=== PATIENT | female | born 1950 | race Caucasian/White ===

== ENCOUNTER 2016-06-25 20:46 | Inpatient (IN) | payer MEDICARE, OTHER ==
[~2016-06-25] VITALS: Ht 157.5 cm; Wt 85.8 kg
[2016-06-25 21:15] VITALS: BP 160/73; PULSE 69; RESP 16; TEMP 98.1; O2SAT 97
--- NOTE | 2016-06-25 22:09 | RADRPT ---
EXAM DATE/TIME: 06/25/2016 21:29 [facility] COMPARISON: No previous studies available for comparison. INDICATIONS : Right elbow pain; fall today. MEDICAL HISTORY : None. SURGICAL HISTORY : None. ENCOUNTER: Initial ACUITY: 1 day PAIN SCORE: 10/10 LOCATION: Right elbow FINDINGS: Olecranon fracture is evident. Radial head fracture is evident. Humerus is intact. CONCLUSION: 1. Fracture of the radial head. 2. Fracture of the olecranon. Jj Santos MD FACR on June 25, 2016 at 22:04 Board Certified Radiologist. This report was verified electronically.
--- NOTE | 2016-06-25 22:11 | RADRPT ---
EXAM DATE/TIME: 06/25/2016 21:30 [facility] COMPARISON: No previous studies available for comparison. INDICATIONS : Right hand pain; fall today. MEDICAL HISTORY : None. SURGICAL HISTORY : None. ENCOUNTER: Initial ACUITY: 1 day PAIN SCORE: 3/10 LOCATION: Right hand FINDINGS: There is deformity of the carponavicular. Navicular views are suggested. No other fractures are appreciated. CONCLUSION: Deformity of the carponavicular. Navicular views are suggested. Jj Santos MD FACR on June 25, 2016 at 22:04 Board Certified Radiologist. This report was verified electronically.
--- NOTE | 2016-06-25 22:12 | RADRPT ---
EXAM DATE/TIME: 06/25/2016 21:42 [facility] COMPARISON: No previous studies available for comparison. INDICATIONS : Right arm pain; fall today. MEDICAL HISTORY : None. SURGICAL HISTORY : None. ENCOUNTER: Initial ACUITY: 1 day PAIN SCORE: 4/10 LOCATION: Right humerus. FINDINGS: Again seen is olecranon fracture. The humerus is intact. CONCLUSION: 1. Fracture of the olecranon and radial head. 2. Humerus is intact. Jj Santos MD FACR on June 25, 2016 at 22:06 Board Certified Radiologist. This report was verified electronically.
--- NOTE | 2016-06-25 22:19 | RADRPT ---
EXAM DATE/TIME: 06/25/2016 21:28 [facility] COMPARISON: No previous studies available for comparison. INDICATIONS : Right forearm pain; fall today. MEDICAL HISTORY : None. SURGICAL HISTORY : None. ENCOUNTER: Initial ACUITY: 1 day PAIN SCORE: 10/10 LOCATION: Right forearm FINDINGS: Again seen is the fracture of the radial head and olecranon. Humerus is intact. CONCLUSION: Radial head and olecranon fracture. Jj Santos MD FACR on June 25, 2016 at 22:12 Board Certified Radiologist. This report was verified electronically.
[2016-06-25 22:25] LABS: AUTOMATED NEUTROPHIL # 4.7 TH/MM3 (1.8-7.7); BASOPHIL % 0.6 % (0.0-2.0); EOSINOPHIL % 0.6 % (0.0-4.0); HEMATOCRIT 38.4 % (35.0-46.0); HEMO FLAGS DIFF FINAL; LYMPH % 18.8 % (9.0-44.0); LYMPHOCYTE # 1.2 TH/MM3 (1.0-4.8); MEAN CELL VOLUME 80.5 FL (80.0-100.0); MEAN CORPUSCULAR HEMOGLOBIN 27.1 PG (27.0-34.0); MEAN CORPUSCULAR HGB CONC 33.7 % (32.0-36.0); MONO % 7.8 % (0.0-8.0); NEUT % 72.2 % (16.0-70.0); PLATELET COUNT 234 TH/MM3 (150-450); RED BLOOD COUNT 4.77 MIL/MM3 (4.00-5.30); RED CELL DISTRIBUTION WIDTH 14.1 % (11.6-17.2); WHITE BLOOD COUNT 6.6 TH/MM3 (4.0-11.0)
[2016-06-25 22:30] VITALS: BP 148/74; PULSE 70; RESP 14; O2SAT 98
[2016-06-25] MEDS ORDERED: HYDROmorphone HCL PF 1 MG/ML VIAL IV PUSH ONE (22:30)
[2016-06-25 22:48] LABS: ALKALINE PHOSPHATASE 122 U/L (45-117); ALT (GPT) 30 U/L (10-53); ANION GAP 9 MEQ/L (5-15); AST (GOT) 22 U/L (15-37); BICARBONATE 26.7 MEQ/L (21.0-32.0); BLOOD UREA NITROGEN 14 MG/DL (7-18); CHLORIDE 106 MEQ/L (98-107); GLOMERULAR FILTRATION RATE 73 ML/MIN (>89); SODIUM (NA) 142 MEQ/L (136-145); TOTAL BILIRUBIN ADULT 0.3 MG/DL (0.2-1.0)
--- NOTE | 2016-06-25 23:22 | PD ---
HPI Chief Complaint: Injury Time Seen by Provider: 21:00 Travel History International Travel<30 days: No Contact w/Intl Traveler<30days: No Traveled to known affect area: No History of Present Illness HPI 66 yo F complains of right elbow pain. She slipped down 3 stairs and landed on her outstretched right hand. She felt a sudden onset severe pain in the right elbow. Pain has since been constant and is much worse with any range of motion. Immobilization by EMS helped minimally. She did not injure her head or experience a loss of consciousness. Pt is visiting [facility] from [place]. [facility] Past Medical History Diabetes: Yes Patient Takes Glucophage: Yes (glipezide 06/25/16 0900) Diminished Hearing: No Tetanus Vaccination: Unknown Influenza Vaccination: No : 2 Para: 2 Ovarian Cysts: Yes Past Surgical History Hysterectomy: Yes Other Surgery: Yes (c6 c8 fusion) Social History Alcohol Use: Yes (rare) Tobacco Use: No Allergies-Medications (Allergen,Severity, Reaction): Coded Allergies: No Known Allergies (Unverified , 06/25/16) Reported Meds & Prescriptions Reported Meds & Active Scripts Active Review of Systems Except as stated in HPI: all other systems reviewed are Neg General / Constitutional: No: Fever, Chills Musculoskeletal: Positive: Pain Physical Exam Narrative GENERAL: 66 yo F, WNWD, moderate distress SKIN: Warm and dry. HEAD: Atraumatic. Normocephalic. EYES: Pupils equal and round. No scleral icterus. No injection or drainage. ENT: No nasal bleeding or discharge. Mucous membranes pink and moist. NECK: Trachea midline. No JVD. CARDIOVASCULAR: Regular rate and rhythm. RESPIRATORY: No accessory muscle use. Clear to auscultation. Breath sounds equal bilaterally. GASTROINTESTINAL: Abdomen soft, non-tender, nondistended. Hepatic and splenic margins not palpable. MUSCULOSKELETAL: Deformity RUE at elbow with swelling and diffuse TTP. No gross deformity R wrist. 2+ radial artery bilaterally. No evidence open fx. NEUROLOGICAL: Awake and alert. No obvious cranial nerve deficits. Motor grossly within normal limits. Five out of 5 muscle strength in the arms and legs. Normal speech. PSYCHIATRIC: Appropriate mood and affect; insight and judgment normal. Data Data Last Documented VS Vital Signs Date Time Temp Pulse Resp B/P Pulse Ox O2 Delivery O2 Flow Rate FiO2 06/25/16 22:30 70 14 148/74 98 Room Air 06/25/16 21:15 98.1 VS reviewed Orders Complete Blood Count With Diff (06/25/16 21:00) Comprehensive Metabolic Panel (06/25/16 21:00) Iv Access Insert/Monitor (06/25/16 21:00) Oximetry (06/25/16 21:00) Ecg Monitoring (06/25/16 21:00) Forearm (2vws) (06/25/16 21:00) Humerus (Min 2vws) (06/25/16 21:00) Elbow, Limited (Ap&Lat) (06/25/16 21:00) Hand, Limited (2vws) (06/25/16 21:00) Splinting (06/25/16 ) Hydromorphone Pf Inj (Dilaudid Pf Inj) (06/25/16 22:30) Wrist, Navicular Views (06/25/16 ) Admit Order (Ed Use Only) (06/25/16 23:42) Labs Laboratory Tests Test 06/25/16 22:08 White Blood Count 6.6 TH/MM3 Red Blood Count 4.77 MIL/MM3 Hemoglobin 12.9 GM/DL Hematocrit 38.4 % Mean Corpuscular Volume 80.5 FL Mean Corpuscular Hemoglobin 27.1 PG Mean Corpuscular Hemoglobin 33.7 % Concent Red Cell Distribution Width 14.1 % Platelet Count 234 TH/MM3 Mean Platelet Volume 7.3 FL Neutrophils (%) (Auto) 72.2 % Lymphocytes (%) (Auto) 18.8 % Monocytes (%) (Auto) 7.8 % Eosinophils (%) (Auto) 0.6 % Basophils (%) (Auto) 0.6 % Neutrophils # (Auto) 4.7 TH/MM3 Lymphocytes # (Auto) 1.2 TH/MM3 Monocytes # (Auto) 0.5 TH/MM3 Eosinophils # (Auto) 0.0 TH/MM3 Basophils # (Auto) 0.0 TH/MM3 CBC Comment DIFF FINAL Differential Comment Sodium Level 142 MEQ/L Potassium Level 4.0 MEQ/L Chloride Level 106 MEQ/L Carbon Dioxide Level 26.7 MEQ/L Anion Gap 9 MEQ/L Blood Urea Nitrogen 14 MG/DL Creatinine 0.79 MG/DL Estimat Glomerular Filtration 73 ML/MIN Rate Random Glucose 154 MG/DL Calcium Level 8.4 MG/DL Total Bilirubin 0.3 MG/DL Aspartate Amino Transf 22 U/L (AST/SGOT) Alanine Aminotransferase 30 U/L (ALT/SGPT) Alkaline Phosphatase 122 U/L Total Protein 6.7 GM/DL Albumin 3.6 GM/DL MDM Medical Decision Making Medical Screen Exam Complete: Yes Emergency Medical Condition: Yes Medical Record Reviewed: Yes Differential Diagnosis Olecranon fx, wrist fx, hand fx, open fx, closed fx; laboratory abnormality Narrative Course CBC & BMP Diagram 06/25/16 22:08 LFTs normal R ELBOW: Fracture of the radial head; fracture of olecranon R HAND: Deformity carponavicular; navicular views recommended R HUMERUS: Humerus intact R FOREARM: Radial head and olecranon fracture The patient will be admitted for operative repair. Her pain is controlled at 11 :15 PM. Case discussed with Dr. Moise of orthopedics who was in the OR at the time. Nothing by mouth past midnight. Case d/w Dr Garcia. Diagnosis Primary Impression: Olecranon fracture Qualified Code: S52.021A - Olecranon fracture, right, closed, initial encounter Additional Impressions: Radial head fracture, closed Qualified Code: S52.121A - Closed displaced fracture of head of right radius, initial encounter Hand injury Qualified Code: S69.91XA - Hand injury, right, initial encounter Fall Qualified Code: W19.XXXA - Fall, initial encounter Admitting Information Admitting Physician Requests: Admit Irwin Dunbar MD June 25, 2016 23:22
[2016-06-25] MEDS ORDERED: ONDANSETRON HCL 4 MG/2 ML VIAL IVP PRN (23:45)
[2016-06-25] MEDS ORDERED: SODIUM CHLORIDE 0.9% FLUSH 10 ML FLUSH IV FLUSH PRN (23:45)
[2016-06-25] MEDS ORDERED: NALOXONE HCL 0.4 MG/ML AMP IV PRN (23:45)
[2016-06-26] VITALS (8 sets, daily range): BP systolic 109–155; BP diastolic 62–76; PULSE 65–86; RESP 16–17; TEMP 96.8–98.7; O2SAT 96–99
--- NOTE | 2016-06-26 00:14 | RADRPT ---
EXAM DATE/TIME: 06/25/2016 23:54 [facility] COMPARISON: No previous studies available for comparison. INDICATIONS : Possible fracture navicular. MEDICAL HISTORY : None. SURGICAL HISTORY : None. ENCOUNTER: Subsequent ACUITY: 1 day PAIN SCORE: 8/10 LOCATION: Right navicular FINDINGS: There is some mild cystic change in the mid carpal navicular but no definite fracture is seen. Normal carpal alignment. 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 CONCLUSION: 1. No fracture identified on navicular view. Small cystic change in the navicular. Delonte Taylor MD on June 26, 2016 at 0:11 Board Certified Radiologist. This report was verified electronically.
[2016-06-26] MEDS ORDERED: METO25TA3 PO (01:05)
[2016-06-26] MEDS ORDERED: PLAQ200T PO (01:05)
[2016-06-26] MEDS ORDERED: MIRA0.25 PO (01:05)
[2016-06-26] MEDS ORDERED: MODA100T9 PO (01:05)
[2016-06-26] MEDS ORDERED: GLIP5TAB8 PO (01:05)
[2016-06-26] MEDS: HYDROmorphone HCL PF 1 MG/ML VIAL IV PUSH PRN ×4 (02:50→15:14)
[2016-06-26] MEDS ORDERED: METOPROLOL TARTRATE 25 MG TAB PO PRN (04:00)
[2016-06-26] MEDS ORDERED: POVIDONE IODINE 5% (ANTISEPSIS KIT) 4 APPLICATIONS EACH NARE PRN (04:00)
[2016-06-26] MEDS ORDERED: INSULIN HUMAN REGULAR 1,000 UNITS/10 ML VIAL SQ PRN (04:00)
[2016-06-26] MEDS ORDERED: SODIUM CHLORID 0.9% 500 ML IV PRN (04:00)
[2016-06-26] MEDS ORDERED: LACTATED RINGER'S 1000 ML IV PRN (04:00)
[2016-06-26] MEDS ORDERED: CHLORHEXIDINE GLUCONATE 2 % 1 PACK (2 CLOTHS) TOPICAL PRN (04:00)
--- NOTE | 2016-06-26 04:29 | HHI.HP ---
[facility] Non-Staff Admission Diagnosis R Olecranon Fx; R Radial Head Fx Diagnoses: Chief Complaint: Fell down Travel History International Travel<30 Days: No Contact w/Intl Traveler <30 Da: No Traveled to Known Affected Are: No History of Present Illness History from patient, ER physician communication, and review of medical records. Patient reported that she is visiting here from [place] and while she was at her [place] resorts, she came down to the living room area to watch how he came with her . She was comment down a flight of small steps and missed one step as she was carrying her laptop on one hand. She states she fell onto her other hand which was her right hand. She denies any loss of consciousness. Denies hitting her head. She denies any prior premonitory symptoms prior to the fall. She states that this was simply a trip and fall. She denies being on any blood thinners. Patient denies any recent fever/nausea/vomiting/diarrhea/urinary burning or pain on urination. She denies any hematemesis/hematochezia/melena/hematuria. Review of Systems Except as stated in HPI: all other systems reviewed are Neg Past Family Social History Past Medical History Diabetes CADon metoprolol at home after coronary angiogram was done. No stents. Liver cyst Past Surgical History Hysterectomy Coronary angiogram C6-C7 plates placed Torn right meniscus of the knee Left foot plantar fasciitis surgery Reported Medications Medications listed on EMRreviewed Allergies: Coded Allergies: No Known Allergies (Unverified , 06/25/16) Family History Family history of CAD in multiple members. Dad had pancreatic cancer. Social History Used to smoke cigarettes, quit 38 years ago. Denies any alcohol abuse or drug abuse. Lives with her . Physical Exam Vital Signs Vital Signs Date Time Temp Pulse Resp B/P Pulse Ox O2 Delivery O2 Flow Rate FiO2 06/26/16 04:14 66 06/26/16 02:00 97.2 73 17 129/68 98 06/26/16 01:14 72 16 155/70 99 Room Air 06/25/16 22:30 70 14 148/74 98 Room Air 06/25/16 21:15 98.1 69 16 160/73 97 Physical Exam GENERAL: This is a well-nourished, well-developed patient, in no apparent distress. SKIN: No rashes, ecchymoses or lesions. Cool and dry. HEAD: Atraumatic. Normocephalic. No temporal or scalp tenderness. EYES: No scleral icterus. No injection or drainage. ENT: Nose without bleeding, purulent drainage or septal hematoma. Airway patent. NECK: Trachea midline. No JVD CARDIOVASCULAR: Regular rate and rhythm without murmurs, gallops, or rubs. RESPIRATORY: Clear to auscultation. Breath sounds equal bilaterally. No wheezes , rales, or rhonchi. GASTROINTESTINAL: Abdomen soft, non-tender, nondistended. No guarding. MUSCULOSKELETAL: Extremities without clubbing, cyanosis, or edema. No calf tenderness. Right upper extremity in a sling. Strong right radial pulse. Able to wiggle her fingers. NEUROLOGICAL: Awake and alert. Motor and sensory grossly within normal limits. Normal speech. Laboratory Laboratory Tests Test 06/25/16 22:08 White Blood Count 6.6 Red Blood Count 4.77 Hemoglobin 12.9 Hematocrit 38.4 Mean Corpuscular Volume 80.5 Mean Corpuscular Hemoglobin 27.1 Mean Corpuscular Hemoglobin 33.7 Concent Red Cell Distribution Width 14.1 Platelet Count 234 Mean Platelet Volume 7.3 Neutrophils (%) (Auto) 72.2 Lymphocytes (%) (Auto) 18.8 Monocytes (%) (Auto) 7.8 Eosinophils (%) (Auto) 0.6 Basophils (%) (Auto) 0.6 Neutrophils # (Auto) 4.7 Lymphocytes # (Auto) 1.2 Monocytes # (Auto) 0.5 Eosinophils # (Auto) 0.0 Basophils # (Auto) 0.0 CBC Comment DIFF FINAL Differential Comment Sodium Level 142 Potassium Level 4.0 Chloride Level 106 Carbon Dioxide Level 26.7 Anion Gap 9 Blood Urea Nitrogen 14 Creatinine 0.79 Estimat Glomerular Filtration 73 Rate Random Glucose 154 Calcium Level 8.4 Total Bilirubin 0.3 Aspartate Amino Transf 22 (AST/SGOT) Alanine Aminotransferase 30 (ALT/SGPT) Alkaline Phosphatase 122 Total Protein 6.7 Albumin 3.6 Result Diagram: 06/25/16220706/25/162207 Imaging Last 48 hours Impressions Radius/Ulna X-Ray 06/25/162099 Signed Impressions: Service Date/Time: June 21:28 - CONCLUSION: Radial head and olecranon fracture. Jj Santos MD FACR Humerus X-Ray 06/25/162099 Signed Impressions: Service Date/Time: June 21:42 - CONCLUSION: 1. Fracture of the olecranon and radial head. 2. Humerus is intact. Jj Santos MD FACR Hand X-Ray 06/25/162099 Signed Impressions: Service Date/Time: June 21:30 - CONCLUSION: Deformity of the carponavicular. Navicular views are suggested. Jj Santos MD FACR Elbow X-Ray 06/25/162099 Signed Impressions: Service Date/Time: June 21:29 - CONCLUSION: 1. Fracture of the radial head. 2. Fracture of the olecranon. Jj Santos MD FACR Wrist X-Ray 06/25/16 Signed Impressions: Service Date/Time: June 23:54 - CONCLUSION: 1. No fracture identified on navicular view. Small cystic change in the navicular. Delonte Taylor MD Assessment and Plan Assessment and Plan Impression: Status post fall Right radial head and olecranon fracture Diabetes CAD Liver cyst Plan: Nothing by mouth. Orthopedics was consulted. IV hydration. Pain control. We'll monitor fingersticks. Resume other home meds. Including beta blockers. DVT prophylaxiswith SCD. Discussed Condition With patient , ER MD, nursing staff Physician Certification 2 Midnight Certification Type: Admission for Inpatient Services Order for Inpatient Services The services are ordered in accordance with Medicare regulations or non- Medicare payer requirements, as applicable. In the case of services not specified as inpatient-only, they are appropriately provided as inpatient services in accordance with the 2-midnight benchmark. Estimated LOS (days): 2 days is the estimated time the patient will need to remain in the hospital, assuming treatment plan goals are met and no additional complications. Post-Hospital Plan: Home Mechelle Garcia MD June 26, 2016 04:29
[2016-06-26 07:21] LABS: BASOPHIL # 0.1 TH/MM3 (0-0.2); BASOPHIL % 0.7 % (0.0-2.0); EOSINOPHIL # 0.1 TH/MM3 (0-0.4); EOSINOPHIL % 0.8 % (0.0-4.0); HEMATOCRIT 38.2 % (35.0-46.0); HEMO FLAGS DIFF FINAL; LYMPH % 20.8 % (9.0-44.0); LYMPHOCYTE # 1.8 TH/MM3 (1.0-4.8); MEAN CELL VOLUME 81.8 FL (80.0-100.0); MEAN CORPUSCULAR HEMOGLOBIN 27.4 PG (27.0-34.0); MEAN CORPUSCULAR HGB CONC 33.5 % (32.0-36.0); MONO % 7.6 % (0.0-8.0); NEUT % 70.1 % (16.0-70.0); PLATELET COUNT 215 TH/MM3 (150-450); RED BLOOD COUNT 4.68 MIL/MM3 (4.00-5.30); RED CELL DISTRIBUTION WIDTH 13.9 % (11.6-17.2); WHITE BLOOD COUNT 8.6 TH/MM3 (4.0-11.0)
[2016-06-26 07:41] LABS: BICARBONATE 25.4 MEQ/L (21.0-32.0); POTASSIUM 3.6 MEQ/L (3.5-5.1)
[2016-06-26] MEDS ORDERED: MAGNESIUM HYDROXIDE SUSP 30 ML CUP PO PRN (08:15)
[2016-06-26] MEDS ORDERED: GLUCAGON 1 MG/ML VIAL OTHER PRN (08:15)
[2016-06-26] MEDS ORDERED: ACETAMINOPHEN/HYDROcodone 325 MG/5 MG TAB PO PRN (08:15)
[2016-06-26] MEDS ORDERED: DEXTROSE 50% IN WATER 50 ML VIAL(D50) IV PRN (08:15)
[2016-06-26] MEDS ORDERED: ACETAMINOPHEN/HYDROcodone 325 MG/10 MG TAB PO PRN (08:15)
[2016-06-26] MEDS ORDERED: ACETAMINOPHEN 325 MG TAB PO PRN ×2 (08:15)
[2016-06-26] MEDS ORDERED: PILL SPLITTER OTHER PRN (08:30)
[2016-06-26] MEDS ORDERED: DOCUSATE SODIUM 100 MG CAP PO SCH (09:00)
[2016-06-26] MEDS: HYDROXYCHLOROQUINE SULFATE 200 MG TAB PO SCH (09:00)
[2016-06-26] MEDS: MODAFINIL 200 MG TAB PO SCH (09:00)
[2016-06-26] MEDS ORDERED: SODIUM CHLORIDE 0.9% FLUSH 10 ML FLUSH IV FLUSH SCH (09:00)
--- NOTE | 2016-06-26 09:38 | HHI.PR ---
Subjective Remarks Follow-up elbow fracture. Awaiting surgery. Pain under control. Seen with . Objective Vitals Vital Signs Date Time Temp Pulse Resp B/P Pulse Ox O2 Delivery O2 Flow Rate FiO2 06/26/16 07:51 96.9 86 16 109/67 97 06/26/16 04:14 66 06/26/16 04:05 96.8 67 17 116/66 96 06/26/16 02:00 97.2 73 17 129/68 98 06/26/16 01:14 72 16 155/70 99 Room Air 06/25/16 22:30 70 14 148/74 98 Room Air 06/25/16 21:15 98.1 69 16 160/73 97 I/O 06/25/16 06/25/16 06/25/16 06/26/16 06/26/16 06/26/16 07:00 15:00 23:00 07:00 15:00 23:00 Intake Total 0 ml Balance 0 ml Intake Oral 0 ml # Voids 1 # Bowel Movements 0 Result Diagram: 06/26/1639 06/26/16638 Imaging Last Impressions Radius/Ulna X-Ray 06/25/162099 Signed Impressions: Service Date/Time: June 21:28 - CONCLUSION: Radial head and olecranon fracture. Jj Santos MD FACR Humerus X-Ray 06/25/162099 Signed Impressions: Service Date/Time: June 21:42 - CONCLUSION: 1. Fracture of the olecranon and radial head. 2. Humerus is intact. Jj Santos MD FACR Hand X-Ray 06/25/162099 Signed Impressions: Service Date/Time: June 21:30 - CONCLUSION: Deformity of the carponavicular. Navicular views are suggested. Jj Santos MD FACR Elbow X-Ray 06/25/162099 Signed Impressions: Service Date/Time: June 21:29 - CONCLUSION: 1. Fracture of the radial head. 2. Fracture of the olecranon. Jj Santos MD FACR Wrist X-Ray 06/25/16 Signed Impressions: Service Date/Time: Thursday, June 25, 2016 23:54 - CONCLUSION: 1. No fracture identified on navicular view. Small cystic change in the navicular. Delonte Taylor MD Objective Remarks GENERAL: This is a well-nourished, well-developed patient, in no apparent distress. SKIN: No rashes, ecchymoses or lesions. Cool and dry. HEAD: Atraumatic. Normocephalic. No temporal or scalp tenderness. EYES: No scleral icterus. No injection or drainage. ENT: Nose without bleeding, purulent drainage or septal hematoma. Airway patent. NECK: Trachea midline. No JVD CARDIOVASCULAR: Regular rate and rhythm without murmurs, gallops, or rubs. RESPIRATORY: Clear to auscultation. Breath sounds equal bilaterally. No wheezes , rales, or rhonchi. GASTROINTESTINAL: Abdomen soft, non-tender, nondistended. No guarding. MUSCULOSKELETAL: Extremities without clubbing, cyanosis, or edema. No calf tenderness. Right upper extremity in a sling. Strong right radial pulse. Able to wiggle her fingers. NEUROLOGICAL: Awake and alert. Motor and sensory grossly within normal limits. Normal speech. A/P Problem List: (1) Olecranon fracture ICD Code: S52.023A Status: Acute (2) Radial head fracture, closed ICD Code: S52.123A Status: Acute (3) Fall ICD Code: W19.XXXA Status: Acute Assessment and Plan Status post fall. Fall precautions. Physical therapy evaluation. Right radial head and olecranon fracture nothing by mouth for definitive repair today. Continue pain management with Lortab and IV morphine. Diabetes. Monitor fingersticks with sliding scale coverage CAD. Denies chest pain: Continue beta carolann Liver cyst. Outpatient follow-up DVT prophylaxiswith SCD. Discharge Planning Discharge when cleared by orthopedic surgery Problem Qualifiers (1) Olecranon fracture: Qualified Code: S52.021A - Olecranon fracture, right, closed, initial encounter (2) Radial head fracture, closed: Qualified Code: S52.121A - Closed displaced fracture of head of right radius, initial encounter (3) Fall: Qualified Code: W19.XXXA - Fall, initial encounter Chad Farr MD June 26, 2016 09:38 (3) Fall: Qualified Code: W19.XXXA - Fall, initial encounter Chad Farr MD June 26, 2016 09:38
[2016-06-26] MEDS ORDERED: HYDR-3583 PO (09:40)
[2016-06-26] MEDS: METOPROLOL TARTRATE 25 MG TAB PO SCH ×2 (10:46→21:49)
[2016-06-26] MEDS: INSULIN ASPART SUPPLEMENTAL SCALE SQ SCH ×3 (10:50→21:00)
[2016-06-26] MEDS ORDERED: PROPOFOL 200 MG/20 ML AMP IV ONE (13:00)
[2016-06-26] MEDS ORDERED: ONDANSETRON HCL 4 MG/2 ML VIAL IV PUSH ONE (13:00)
[2016-06-26] MEDS ORDERED: LACTATED RINGER'S 1000 ML INJ 1,000 ML IV ONE (13:01)
--- NOTE | 2016-06-26 15:20 | PD.CONS ---
cc: Cam Wilkerson Jr., MD HPI Service Orthopedic Surgeons Consult Requested By Primary Care Physician Non-Staff Admission Diagnosis R Olecranon Fx; R Radial Head Fx Diagnoses: (1) Olecranon fracture (2) Radial head fracture, closed (3) Fall Chief Complaint: right elbow frature History of Present Illness 66-year-old female history of diabetes visiting from [place] fell from small steps directly onto her right elbow and sustained injuries to the right elbow. She denies any other injuries. X-ray taken the emergency department reveal displaced olecranon as well as radial head fracture. Denies any head injuries. Denies loss of consciousness. Currently patient's pain is 5 out of 10, exacerbated by any range of motion, relieved at rest and with IV pain medicine, pain is sharp nonradiating, not associated with any paresthesia and numbness to the right upper extremity. Patient is very active. She denies any chest pain or shortness of breath She states she fell onto her other hand which was her right hand. She denies any loss of consciousness. Denies hitting her head. She denies any prior premonitory symptoms prior to the fall. She states that this was simply a trip and fall. She denies being on any blood thinners. Patient denies any recent fever/nausea/vomiting/diarrhea/urinary burning or pain on urination. She denies any hematemesis/hematochezia/melena/hematuria. ROS - General Review of Systems Except as stated in HPI: all other systems reviewed are Neg PFSH Past Family Social History Past Medical History Diabetes CADon metoprolol at home after coronary angiogram was done. No stents. Liver cyst Past Surgical History Hysterectomy Coronary angiogram C6-C7 plates placed Torn right meniscus of the knee Left foot plantar fasciitis surgery Reported Medications Medications listed on EMRreviewed Allergies: Coded Allergies: No Known Allergies (Unverified , 06/25/16) Family History Family history of CAD in multiple members. Dad had pancreatic cancer. Social History Used to smoke cigarettes, quit 38 years ago. Denies any alcohol abuse or drug abuse. Lives with her . Past Family Social History Past Medical History Diabetes CADon metoprolol at home after coronary angiogram was done. No stents. Liver cyst Past Surgical History Hysterectomy Coronary angiogram C6-C7 plates placed Torn right meniscus of the knee Left foot plantar fasciitis surgery Allergies: Coded Allergies: No Known Allergies (Unverified , 06/25/16) Active Ordered Medications Current Medications Medications (Trade) Dose Ordered Sig/Padma Route Start Time Stop Time Status Last Admin (NS Flush) 2 ml UNSCH PRN IV FLUSH 06/25/16 23:45 (NS Flush) 2 ml BID IV FLUSH 06/26/16 09:00 (Zofran Inj) 4 mg Q6H PRN IVP 06/25/16 23:45 (Narcan Inj) 0.4 mg UNSCH PRN IV 06/25/16 23:45 Hydromorphone HCl 0.2 mg 0.2 mg Q4H PRN IV PUSH 06/25/16 23:45 06/26/16 15:14 Lactated Ringer's 1,000 ml @ 30 mls/hr Q24H PRN IV 06/26/16 04:00 06/29/16 03:59 (NS 500 ml Inj) 500 ml @ 30 mls/hr [id number] PRN IV 06/26/16 04:00 06/29/16 03:59 (Tylenol) 650 mg Q4H PRN PO 06/26/16 08:15 (Colace) 100 mg Q12H PO 06/26/16 09:00 (Milk Of Magnesia Liq) 30 ml Q12H PRN PO 06/26/16 08:15 (Tylenol) 650 mg Q6H PRN PO 06/26/16 08:15 (Felt 5-325 Mg) 1 tab Q4H PRN PO 06/26/16 08:15 (Felt 10-325 Mg) 1 tab Q4H PRN PO 06/26/16 08:15 (D50w (Vial) Inj) 50 ml UNSCH PRN IV 06/26/16 08:15 (Glucagon Inj) 1 mg UNSCH PRN OTHER 06/26/16 08:15 (Plaquenil) 400 mg DAILY PO 06/26/16 09:00 (Lopressor) 25 mg BID PO 06/26/16 09:00 06/26/16 10:46 (Mirapex) 0.25 mg HS PO 06/26/16 21:00 (Provigil) 100 mg DAILY PO 06/26/16 09:00 (Pill Splitter) 1 ea UNSCH PRN OTHER 06/26/16 08:30 Reported Meds & Active Scripts Active Hydrocodone-Acetaminophen 10-325 mg Tab 1 Tab PO Q4H PRN Reported Modafinil 100 Mg Tab 100 Mg PO DAILY Mirapex (Pramipexole Dihydrochloride) 0.25 Mg Tab 0.25 Mg PO HS Plaquenil (Hydroxychloroquine Sulfate) 200 Mg Tab 400 Mg PO DAILY Take with food Metoprolol Tartrate 25 Mg Tab 25 Mg PO BID Glipizide 5 Mg Tab 5 Mg PO BIDAC Take 30 minutes before a meal Family History Family history of CAD in multiple members. Dad had pancreatic cancer. Social History Used to smoke cigarettes, quit 38 years ago. Denies any alcohol abuse or drug abuse. Lives with her . Physical Exam Vital Signs Vital Signs Date Time Temp Pulse Resp B/P Pulse Ox O2 Delivery O2 Flow Rate FiO2 06/26/16 12:00 97.7 67 16 109/62 96 06/26/16 07:51 96.9 86 16 109/67 97 06/26/16 04:14 66 06/26/16 04:05 96.8 67 17 116/66 96 06/26/16 02:00 97.2 73 17 129/68 98 06/26/16 01:14 72 16 155/70 99 Room Air 06/25/16 22:30 70 14 148/74 98 Room Air 06/25/16 21:15 98.1 69 16 160/73 97 Physical Exam Alert awake and oriented x 3. No acute distress. Neck: No pain with any range of motion and neck. Pulmonary: Normal respiratory effort. Right upper extremity exam: splint in place. Decreased radial nerve motor and sensation in hand and forearm. Otherwise grossly neurovascularly intact in anterior interosseous and ulnar nerve. 2+ radial artery pulses. Good cap refill. Bilateral lower extremity: Grossly neurovascular intact. Full range of motion and able to move her ankles, knees and hips. Soft compartments. Negative Homans bilaterally. Toes are warm and well perfused. Palpable pulses. Laboratory Laboratory Tests Test 06/25/16 06/26/16 22:08 06:39 White Blood Count 6.6 8.6 Red Blood Count 4.77 4.68 Hemoglobin 12.9 12.8 Hematocrit 38.4 38.2 Mean Corpuscular Volume 80.5 81.8 Mean Corpuscular Hemoglobin 27.1 27.4 Mean Corpuscular Hemoglobin 33.7 33.5 Concent Red Cell Distribution Width 14.1 13.9 Platelet Count 234 215 Mean Platelet Volume 7.3 7.3 Neutrophils (%) (Auto) 72.2 70.1 Lymphocytes (%) (Auto) 18.8 20.8 Monocytes (%) (Auto) 7.8 7.6 Eosinophils (%) (Auto) 0.6 0.8 Basophils (%) (Auto) 0.6 0.7 Neutrophils # (Auto) 4.7 6.0 Lymphocytes # (Auto) 1.2 1.8 Monocytes # (Auto) 0.5 0.7 Eosinophils # (Auto) 0.0 0.1 Basophils # (Auto) 0.0 0.1 CBC Comment DIFF FINAL DIFF FINAL Differential Comment Sodium Level 142 140 Potassium Level 4.0 3.6 Chloride Level 106 107 Carbon Dioxide Level 26.7 25.4 Anion Gap 9 8 Blood Urea Nitrogen 14 15 Creatinine 0.79 0.67 Estimat Glomerular Filtration 73 88 Rate Random Glucose 154 122 Calcium Level 8.4 8.8 Total Bilirubin 0.3 Aspartate Amino Transf 22 (AST/SGOT) Alanine Aminotransferase 30 (ALT/SGPT) Alkaline Phosphatase 122 Total Protein 6.7 Albumin 3.6 Result Diagram: 06/26/1663806/26/16 06 Imaging Last 72 hours Impressions Radius/Ulna X-Ray 06/25/162099 Signed Impressions: Service Date/Time: June 21:28 - CONCLUSION: Radial head and olecranon fracture. Jj Santos MD FACR Humerus X-Ray 06/25/162099 Signed Impressions: Service Date/Time: June 21:42 - CONCLUSION: 1. Fracture of the olecranon and radial head. 2. Humerus is intact. Jj Santos MD FACR Hand X-Ray 06/25/162099 Signed Impressions: Service Date/Time: June 21:30 - CONCLUSION: Deformity of the carponavicular. Navicular views are suggested. Jj Santos MD FACR Elbow X-Ray 06/25/16 2100 Signed Impressions: Service Date/Time: June 21:29 - CONCLUSION: 1. Fracture of the radial head. 2. Fracture of the olecranon. Jj Santos MD FACR Wrist X-Ray 06/25/16 0000 Signed Impressions: Service Date/Time: June 23:54 - CONCLUSION: 1. No fracture identified on navicular view. Small cystic change in the navicular. Delonet Taylor MD Assessment & Plan Assessment and Plan 66-year-old female Right elbow injury. X-ray examination revealed displaced right olecranon as well as comminuted right radial head fracture. She has decreased radial/ posterior interosseous nerve function, otherwise grossly neurovascularly intact. I recommended open reduction internal fixation of the olecranon with open reduction internal fixation versus radial head replacement. I discussed my treatment plans with the patient, as well as risks, benefits and alternatives of surgical Intervention versus nonoperative treatment. In this case, the risks of operative intervention involves bleeding, infection, risks of damage to neurovascular structures, the risk of needing further surgery, posttraumatic arthritis and the risks involved with complication from anesthesia. We will proceed with the above procedure. The patient accepts these risks; understands and agrees with my recommendations. I also discussed my proposed postoperative care and follow-up plan. All questions were answered. Plan for OR []. Nothing by mouth []. Patient consented. Thanks for the consult, thanks for allowing me to participate in this patient's medical care. Cam Wilkerson Jr., MD June 26, 2016 15:19
[2016-06-26] MEDS ORDERED: KETOROLAC TROMETHAMINE 30 MG/ML (IVP) VIAL IVP ONE (15:30)
[2016-06-26] MEDS ORDERED: ceFAZolin 2 GM PREMIX 50 ML IV SCH (15:30)
[2016-06-26] MEDS ORDERED: ONDANSETRON HCL 4 MG/2 ML VIAL IV PRN (15:30)
[2016-06-26] MEDS ORDERED: ZOLPIDEM TARTRATE 5 MG TAB PO PRN (15:30)
[2016-06-26] MEDS ORDERED: MORPHINE SULFATE 8 MG/ML INJ IV PUSH PRN (15:30)
[2016-06-26] MEDS ORDERED: VANCOMYCIN INJ 1,000 MG in SODIUM CHLOR 0.9% 250 ML INJ 250 ML IV SCH (15:30)
[2016-06-26] MEDS ORDERED: SODIUM CHLORIDE 0.9% FLUSH 10 ML FLUSH IV FLUSH PRN (15:30)
[2016-06-26] MEDS ORDERED: oxyCODONE/ACETAMINOPHEN 5 MG/325 MG TAB PO PRN (15:30)
[2016-06-26] MEDS ORDERED: GENTAMICIN SULFATE 80 MG/2 ML VIAL ONE (16:47)
[2016-06-26] MEDS: VANCOMYCIN INJ 1,000 MG in SODIUM CHLOR 0.9% 250 ML INJ 250 ML IV SCH (18:09)
[2016-06-26] MEDS ORDERED: VANCOMYCIN HCL 1000 MG VIAL ONE (18:10)
[2016-06-26] MEDS ORDERED: SODIUM CHLOR 0.9% 250 ML INJ 250 ML ONE (18:10)
[2016-06-26] MEDS ORDERED: ACETAMINOPHEN 1000 MG/100 ML VIAL IV ONE (18:54)
[2016-06-26] MEDS ORDERED: SUGAMMADEX SODIUM 200 MG/2 ML VIAL IV PUSH ONE ×2 (18:54)
[2016-06-26] MEDS ORDERED: fentaNYL CITRATE 250 MCG/5 ML AMP ONE (18:54)
[2016-06-26] MEDS ORDERED: HYDROmorphone HCL PF 2 MG/ML VIAL ONE (18:54)
--- NOTE | 2016-06-26 20:17 | RADRPT ---
EXAM DATE/TIME: 06/26/2016 18:51 [facility] COMPARISON: ELBOW RIGHT LIMITED (AP & LAT), June 25, 2016, 21:29. INDICATIONS : Surgical repair. MEDICAL HISTORY : None. SURGICAL HISTORY : None. ENCOUNTER: Initial ACUITY: 1 day PAIN SCORE: Non-responsive. LOCATION: Right elbow. FINDINGS: Multiple views were obtained in the operating room. First, the olecranon fracture was reduced and fix ed with screw and plate. Alignment is near-anatomic. Subsequently, the fractured radial head was resected and arthroplasty placed. Alignment appears sridevi l. CONCLUSION: Expected radiographic appearance, radial head arthroplasty and screw and plate fixation of the olecra non fracture. No evidence of an acute complication. Eligio Spencer MD on June 26, 2016 at 20:14 Board Certified Radiologist. This report was verified electronically.
[2016-06-26] MEDS ORDERED: DO NOT ADM ANY ANTICOAGULANT DRUGS PRN (20:44)
--- NOTE | 2016-06-26 20:45 | PD.OP ---
cc: Cam Wilkerson Jr., MD Operative Report Date of Surgery: June 26, 2016 Preoperative Diagnosis: #1 right olecranon fracture #2 right radial head fracturecomminuted Postoperative Diagnosis: Same Procedure: #1 open reduction internal fixation right olecranon #2 radial head arthroplasty Anesthesia: Gen. Surgeon: Cam Wilkerson Sweater Designer(s): David White PA-C The surgical procedure was assisted by my physician family assistant. My physician family assistant presence was necessary throughout this case for the manipulation and positioning of the surgical extremity. My physician family assistant was assisting me throughout the duration of this procedure. The skill set of a physician family assistant was medically necessary to complete this procedure. During the surgical case, the pressure testing technician was working at the back table and the physician family assistant was directly assisting me. Resident Surgeon: None Operation and Findings: DETAILS OF PROCEDURE This is a 66 year-old female who sustained an a severe fracture of the RIGHT elbow. Informed consent was obtained. The operative site was marked. He was brought to the OR and placed on the OR table. He was given IV sedation and general endotracheal anesthesia. He was placed in the supine position. The arm was prepped with alcohol followed by Hibiclens and draped in the usual sterile fashion. A timeout procedure wasperformed. He received IV antibiotics. A standard direct posterior approch to the olecranon was performed. Dissection taken down to the olecranon process and then distal to the proximal shaft. A transverse displaced olecranon fracture was identified.The ulnar nerve was identified in the groove and was kept in direct visualization and protected throughout the entire procedure. The fracture site was now visualized. The fracture ends were sharply debrided and cleaned. The articular surface was reduced. Fracture fragments were manipulated to achieve excellent reduction. K wires were used to hold provisional fixation. Fluoroscopy confirmed appropriate alignment of fracture. A Synthes olecranon plate was selected . Plate was provisionally fixed to bone with K wires. 2.7 screws and 3.5 cortical screws were used to compress plate to bone. Fluoroscopy confirmed appropriate alignment of fracture with well-placed hardware. Additional locking screws were now placed. Screws were predrilled and measured for appropriate length. K wires were removed. Final fluoroscopy revealed excellent reduction of fracture with well-placed hardware. The wound was thoroughly irrigated with sterile saline. Subcutaneous tissue was closed with 2-0 vicryl, 3-0 Vicryl and skin was closed with rosi. RADIAL HEAD ARTHROPLATY Next, attention was turned to the radial head. The radial head fracture was now exposed through a small lateral Koker incision. Care was taken to avoid injury to the posterior interosseous nerve by maintaining the forearm in pronation throughout the case. There was significant comminution of the radial head which was not amenable to primary fixation, therefore we decided to proceed with radial head arthroplasty. The proximal ulnar shaft was smoothed down with a plantar, and sequential broaching of the proximal radial canal was done. Radial head prosthesis was inserted and it fit well without overstuffing the joint. Position and adequate size of the radial head prosthesis was confirmed under multiplanar fluoroscopy looking to maintain symmetry at the medial ulnohumeral joint space as well as the radial capitellar joint space. The elbow was now stable to valgus stress. The wound was now thoroughly irrigated. The elbow was placed through a gentle range of motion and was relatively stable to varus, valgus and posterior translation. The fascial layer was now closed with 0 Vicryl. The subcutaneous tissue was closed with 3-0 Vicryl, and the skin was closed with rosi. Sterile dressings were applied. The patient was placed in a well-molded, well- padded splint. sHe was transferred to Recovery in stable condition. postop plan: NWB RUE splint in supination- in place at all times. no dressing changes SCD okay for shoulder ROM as richard Cam Wilkerson Jr., MD June 26, 2016 20:45
[2016-06-26] MEDS ORDERED: PERC5TAB12 PO (20:53)
--- NOTE | 2016-06-26 20:58 | EKG ---
Date Performed: 06/26/2016 Time Performed: 05:25:12 PTAGE: 66 years EKG: Sinus rhythm Short DE interval Anterior T wave changes are nonspecific Low QRS voltages in precordial leads Borde rline ECG NO PREVIOUS TRACING DOCTOR: Gautam Ortiz Interpretating Date/Time 06/26/2016 20:56:47
[2016-06-26] MEDS: SODIUM CHLORIDE 0.9% FLUSH 10 ML FLUSH IV FLUSH SCH (21:00)
[2016-06-26] MEDS ORDERED: PRAMIPEXOLE DIHYDROCHLORIDE 0.25 MG TAB PO SCH (21:00)
[2016-06-26] MEDS ORDERED: *morphine SULFATE 8 MG/ML PERIprocedure ONLY ONE (21:14)
[2016-06-26] MEDS: oxyCODONE/ACETAMINOPHEN 5 MG/325 MG TAB PO PRN (21:49)
[2016-06-26] MEDS: DOCUSATE SODIUM 100 MG CAP PO SCH (21:50)
[2016-06-27 00:05] VITALS: BP 121/67; PULSE 70; RESP 17; TEMP 96.9; O2SAT 96
[2016-06-27] MEDS: oxyCODONE/ACETAMINOPHEN 5 MG/325 MG TAB PO PRN ×2 (03:29→09:23)
[2016-06-27 04:05] VITALS: BP 103/62; PULSE 72; RESP 17; TEMP 98; O2SAT 98
[2016-06-27] MEDS: VANCOMYCIN INJ 1,000 MG in SODIUM CHLOR 0.9% 250 ML INJ 250 ML IV SCH (05:25)
[2016-06-27] MEDS: INSULIN ASPART SUPPLEMENTAL SCALE SQ SCH ×2 (06:30→11:00)
[2016-06-27 08:00] VITALS: BP 152/75; PULSE 74; RESP 15; TEMP 97.3; O2SAT 94
--- NOTE | 2016-06-27 08:25 | PD.ORT.PN ---
Subjective Post Op Day #: 1 Subjective Remarks painful but under control Objective Vitals Vital Signs Date Time Temp Pulse Resp B/P Pulse Ox O2 Delivery O2 Flow Rate FiO2 06/27/16 04:05 20 06/27/16 04:05 98.0 72 17 103/62 98 06/27/16 00:05 96.9 70 17 121/67 96 06/26/16 21:30 81 06/26/16 21:30 98.7 77 17 109/76 96 06/26/16 21:30 20 06/26/16 21:20 77 14 156/74 95 Nasal Cannula 2 06/26/16 21:00 78 14 159/80 95 Nasal Cannula 2 06/26/16 20:40 98.3 81 14 183/86 99 Nasal Cannula 4 06/26/16 16:00 97.3 65 16 136/69 96 06/26/16 12:00 97.7 67 16 109/62 96 I/O 06/26/16 06/26/16 06/26/16 06/27/16 06/27/16 06/27/16 07:00 15:00 23:00 07:00 15:00 23:00 Intake Total 0 ml 0 ml 1340 ml 690 ml Output Total 50 ml Balance 0 ml 0 ml 1290 ml 690 ml Intake Oral 0 ml 0 ml 240 ml 240 ml IV Total 300 ml 450 ml Other 800 ml Output Estimated Blood Loss 50 ml # Voids 1 4 1 3 # Bowel Movements 0 0 0 0 Result Diagram: 06/26/16 0639 06/26/16 0639 Objective Remarks in bed, nad, in room R arm splint intact NVI sensation intact cap refill Assessment & Plan Ortho Post Op Day #: 1 Problem List: Assessment and Plan 66-year-old female s/p ORIF R olecranon fx and R radial head replacement POD#1 maintain splint pain control ROM of fingers lives in [place], and will be going home this week provide copy of xrays and op report cleared by ortho for d/c Porfirio Amaro June 27, 2016 08:25
[2016-06-27 08:49] VITALS: PULSE 73
[2016-06-27] MEDS: SODIUM CHLORIDE 0.9% FLUSH 10 ML FLUSH IV FLUSH SCH (08:52)
[2016-06-27] MEDS: DOCUSATE SODIUM 100 MG CAP PO SCH (08:52)
[2016-06-27] MEDS: METOPROLOL TARTRATE 25 MG TAB PO SCH (08:53)
[2016-06-27] MEDS: HYDROXYCHLOROQUINE SULFATE 200 MG TAB PO SCH (08:53)
[2016-06-27] MEDS: MODAFINIL 200 MG TAB PO SCH (08:53)
--- NOTE | 2016-06-27 11:03 | HHI.PR ---
Subjective Remarks Follow-up elbow fracture. She is doing okay pain under control. Discussed with RN and has been. Patient has been cleared for discharge by orthopedic surgery Objective Vitals Vital Signs Date Time Temp Pulse Resp B/P Pulse Ox O2 Delivery O2 Flow Rate FiO2 06/27/16 08:00 97.3 74 15 152/75 94 06/27/16 04:05 20 06/27/16 04:05 98.0 72 17 103/62 98 06/27/16 00:05 96.9 70 17 121/67 96 06/26/16 21:30 81 06/26/16 21:30 98.7 77 17 109/76 96 06/26/16 21:30 20 06/26/16 21:20 77 14 156/74 95 Nasal Cannula 2 06/26/16 21:00 78 14 159/80 95 Nasal Cannula 2 06/26/16 20:40 98.3 81 14 183/86 99 Nasal Cannula 4 06/26/16 16:00 97.3 65 16 136/69 96 06/26/16 12:00 97.7 67 16 109/62 96 I/O 06/26/16 06/26/16 06/26/16 06/27/16 06/27/16 06/27/16 07:00 15:00 23:00 07:00 15:00 23:00 Intake Total 0 ml 0 ml 1340 ml 690 ml Output Total 50 ml Balance 0 ml 0 ml 1290 ml 690 ml Intake Oral 0 ml 0 ml 240 ml 240 ml IV Total 300 ml 450 ml Other 800 ml Output Estimated Blood Loss 50 ml # Voids 1 4 1 3 # Bowel Movements 0 0 0 0 Result Diagram: 06/26/16 0639 06/26/16 0639 Imaging Last Impressions Elbow X-Ray 06/26/16 0000 Signed Impressions: Service Date/Time: Sunday, June 26, 2016 18:51 - CONCLUSION: Expected radiographic appearance, radial head arthroplasty and screw and plate fixation of the olecranon fracture. No evidence of an acute complication. Eligio Spencer MD Radius/Ulna X-Ray 06/25/162099 Signed Impressions: Service Date/Time: June 21:28 - CONCLUSION: Radial head and olecranon fracture. Jj Santos MD FACR Humerus X-Ray 06/25/162099 Signed Impressions: Service Date/Time: June 21:42 - CONCLUSION: 1. Fracture of the olecranon and radial head. 2. Humerus is intact. Jj Santos MD FACR Hand X-Ray 06/25/162099 Signed Impressions: Service Date/Time: June 21:30 - CONCLUSION: Deformity of the carponavicular. Navicular views are suggested. Jj Santos MD FACR Wrist X-Ray 06/25/16 Signed Impressions: Service Date/Time: June 23:54 - CONCLUSION: 1. No fracture identified on navicular view. Small cystic change in the navicular. Delonte Taylor MD Objective Remarks GENERAL: This is a well-nourished, well-developed patient, in no apparent distress. SKIN: No rashes, ecchymoses or lesions. Cool and dry. HEAD: Atraumatic. Normocephalic. No temporal or scalp tenderness. EYES: No scleral icterus. No injection or drainage. ENT: Nose without bleeding, purulent drainage or septal hematoma. Airway patent. NECK: Trachea midline. No JVD CARDIOVASCULAR: Regular rate and rhythm without murmurs, gallops, or rubs. RESPIRATORY: Clear to auscultation. Breath sounds equal bilaterally. No wheezes , rales, or rhonchi. GASTROINTESTINAL: Abdomen soft, non-tender, nondistended. No guarding. MUSCULOSKELETAL: Extremities without clubbing, cyanosis, or edema. No calf tenderness. Right upper extremity with dry dressing. Strong right radial pulse. Able to wiggle her fingers. NEUROLOGICAL: Awake and alert. Motor and sensory grossly within normal limits. Normal speech. Procedures #1 open reduction internal fixation right olecranon #2 radial head arthroplasty A/P Problem List: (1) Olecranon fracture ICD Code: S52.023A Status: Acute (2) Radial head fracture, closed ICD Code: S52.123A Status: Acute (3) Fall ICD Code: W19.XXXA Status: Acute Assessment and Plan Status post fall. Fall precautions. Physical therapy evaluation. Right radial head and olecranon fracture status post repair. Stable continue postoperative care with wound care, physical therapy pain management with Percocet and IV morphine. Diabetes. Stable. Monitor fingersticks with sliding scale coverage CAD. Denies chest pain: Stable. Continue beta carolann Liver cyst. Outpatient follow-up DVT prophylaxiswith SCD. Discharge Planning Discharge patient to home Condition on discharge: Improved Regular Diet as tolerated Ad Trudy activity no driving, nonweightbearing right upper Extremity Rx written: Percocet Follow-up with primary care physician in one week Spent over 30 minutes arranging discharge. Case discussed with patient, and nursing staff Problem Qualifiers (1) Olecranon fracture: Qualified Code: S52.021A - Olecranon fracture, right, closed, initial encounter (2) Radial head fracture, closed: Qualified Code: S52.121A - Closed displaced fracture of head of right radius, initial encounter (3) Fall: Qualified Code: W19.XXXA - Fall, initial encounter Chad Farr MD June 27, 2016 11:03
--- NOTE | 2016-06-27 11:03 | HHI.DCPOC ---
Discharge Care Plan Diagnosis: (1) Fall (2) Radial head fracture, closed (3) Olecranon fracture Your Health Problems Are: Difficulty with ADL Exercise Tolerance Goals to Promote Your Health * To prevent worsening of your condition and complications * To maintain your health at the optimal level Directions to Meet Your Goals Take your medications as prescribed Follow your dietary instruction Follow activity as directed Keep your appointments as scheduled Take your immunizations and boosters as scheduled If your symptoms worsen call your PCP, if no PCP go to Urgent Care Center or Emergency Room Smoking is Dangerous to Your Health. Avoid second hand smoke Call the 24-hour hour crisis hotline for domestic abuse at Chad Farr MD June 27, 2016 11:03
[2016-06-27 12:00] VITALS: BP 108/58; PULSE 70; RESP 16; TEMP 97.2; O2SAT 95
[2016-06-27 12:48] VITALS: O2SAT 97
[2016-06-27] MEDS ORDERED: OXYC1TAB63 PO (14:42)
== END 2016-06-27 17:04 | disposition home or self-care (01) | DRG 483 ==
LOC: NEPC 20:46 → NEDA 23:43 → N06B 06-26 02:20
PROVIDERS: ADMIT Internal Medicine; ATTEND Internal Medicine
PROC: 0RRL0JZ Replacement of Right Elbow Joint with Synthetic Substitute, Open Approach (ICD-10-PCS; 2016-06-26)
PROC: 0PSK04Z Reposition Right Ulna with Internal Fixation Device, Open Approach (ICD-10-PCS; principal; 2016-06-26 17:45)
DX: S52.021A Displaced fracture of olecranon process without intraarticular extension of right ulna, initial encounter for closed fracture (principal); E11.59 Type 2 diabetes mellitus with other circulatory complications; K76.89 Other specified diseases of liver; S52.121A Displaced fracture of head of right radius, initial encounter for closed fracture; W10.8XXA Fall (on) (from) other stairs and steps, initial encounter; Y92.89 Other specified places as the place of occurrence of the external cause; Y99.8 Other external cause status; I25.10 Atherosclerotic heart disease of native coronary artery without angina pectoris; Z87.891 Personal history of nicotine dependence
CPT/HCPCS: 73060; 73070; 73080; 73090; 73100; 73120; 76000; 80048; 80053; 82948; 85025; 93005; 96374; C1713; J0131; J0690; J1170; J1580; J1815; J2270; J2405; J3010; J3370; J7050; J7120